=== PATIENT | male | born 1965 | race Caucasian/White ===

== ENCOUNTER 2016-11-14 21:32 | Emergency (ER) | payer OTHER ==
[~2016-11-14] VITALS: Ht 175.3 cm; Wt 102.3 kg
[~2016-11-14 21:32] MED LIST: ACYC400T7 PO; ATOR80TA77 PO; BENZ-12 PO; BENZ142C6 TP; BUPR300T51 PO; CLIN30GE2 TP; CYCL10TA9 PO; HYDR-3740 PO; HYDR25TA4 PO; KETACONAZOLE CREAM TP; KETACONAZOLE SHAMPOO TP; LORA1TAB PO; METO200T32 PO; ONDA8TAB10 PO; ZIT250 PO; [UNRECOGNIZED DRUG - REMARK] PO
[2016-11-14 21:38] VITALS: BP 149/93; PULSE 106; RESP 23; O2SAT 94
--- NOTE | 2016-11-14 21:49 | ED.REPORT ---
HPI-Dyspnea / Wheezing Date of Service Nov 14, 2016 ED Provider: Hamlet Vera MD 51 year old male with HTN presents to the ER accompanied by a female elevator erector helper complaining of shortness of breath. He states that symptoms onset while walking up a hill with approximately 30lbs of groceries in his backpack. Patient denies chest pain, but reports a sensation of chest "tightness". Nursing Notes Stated Complaint: SHORT OF BREATH Chief Complaint: Respiratory Complaints Nursing Notes Reviewed: Yes Allergies: Coded Allergies: No Known Allergies (Unverified , 02/01/15) Scheduled ([Ketaconazole Shampoo]) 1 APPL TP 2X/WK 2% ([Ketaconazole Cream]) 1 APPL TP BID 2% Acyclovir (Zovirax) 400 Mg Tablet 400 MG PO BID Atorvastatin Calcium (Atorvastatin Calcium) 80 Mg Tablet 80 MG PO DAILY Azithromycin (Zithromax) 250 Mg Tablet 250 MG PO DAILY Benzoyl Peroxide (Benzoyl Peroxide) 142 Gm Cleanser 142 GM TP DAILY Bupropion ER (Wellbutrin XL) 300 Mg Tab.er.24h 300 MG PO DAILY Clindamycin Phosphate (Clindamycin Phosphate Gel) 30 Gm Gel..gram. 1 APPLIC TP BID 1% Hydrochlorothiazide (Hydrochlorothiazide) 25 Mg Tablet 25 MG PO DAILY Metoprolol Succinate ER (Metoprolol Succinate ER) 200 Mg Tab.er.24h 200 MG PO DAILY Prednisone (PredniSONE) 20 Mg Tablet 20 MG PO TID Scheduled PRN ([Benedryl Allergy]) 25-50 MG PO Q4-6H PRN PRN PRN Benzonatate (Tessalon Perle) 100 Mg Capsule 200 MG PO TID PRN PRN For Cough Cyclobenzaprine (Cyclobenzaprine) 10 Mg Tablet 10 MG PO TID PRN PRN For Spasm Hydrocodone-Acetaminophen 10-325 mg (Hydrocodone-Acetaminophen 10-325 mg) 1 Tab Tablet 1 TAB PO Q4-6H PRN PRN For Pain Lorazepam (Lorazepam) 1 Mg Tablet 1 MG PO BID PRN PRN For Anxiety Ondansetron ODT (Ondansetron ODT) 8 Mg Tab.rapdis 8 MG PO Q4H PRN PRN For Nausea General Time Seen by MD: 21:47 Chief Complaint Shortness of breath Hx Obtained From: Patient Arrived By: Walk-in Onset Occurred: Just prior to arrival Symptom Duration: Since onset Pertinent Negative: Pt denies other symptoms Exacerbated by: Deep breath Pertinent Negative: Relieved by nothing Past Medical History Past Medical History Hypertension Hyperlipidemia slight chronic back pain History of bursitis of the right hip Anxiety Bipolar history depression Past Surgical History Reports: Back/neck surgery Smoking History Former Smoker Social History Drug Use: THC Other Social History: Good social support, Lives with children, Local resident Ambulatory Status Independent Review of Systems Constitutional: Denies: Chills, Fever Respiratory: Reports: Shortness of breath, Denies: Non-productive cough Cardiovascular: Denies: Chest pain Musculoskeletal: Denies: Back pain, Extremity pain, Neck pain Complete sys rev & neg: except as marked. GI: Denies: Abdominal pain, Diarrhea, Nausea, Vomiting Physical Exam Initial Vital Signs Vital Signs (First) Date Time Temp Pulse Resp B/P Pulse Ox O2 Delivery O2 Flow Rate FiO2 11/14/16 21:38 36.2 106 23 149/93 94 Room Air 11/14/16 22:16 3 Initial VS: Reviewed, Vital signs abnormal Head / Eyes: Atraumatic, Normocephalic ENT: Mucous membranes moist, Conjunctiva normal, No scleral icterus Abdomen / GI: Soft, Non-tender, No guarding, No rebound, No distention Extremities: Vascular intact, Neuro intact, No swelling, No tenderness Skin: Warm, Dry, No cyanosis Neurologic: Alert, Oriented, Nonfocal General/Constitutional: Awake, Alert, Well developed, Well nourished Neck: Atraumatic, Supple, No meningismus, Full range of motion, No swelling, Non-tender, No masses Respiratory / Chest: No rales, No rhonchi Wheezing / Retractions: Positive: Accessory muscle use mod, Wheezing expiratory , Wheezing moderate Tachypneic Cardiovascular: Heart rate NL, Regular rhythm, Heart sounds NL, Peripheral circulation NL Interpretation & Diagnostics Lab Results Interpretation Result Diagram: 11/14/16220311/14/16 220 Test 11/14/16 22:04 White Blood Count 10.9th/mm3 (3.8-10.1) Red Blood Count 5.39mil/mm3 (4.40-5.80) Hemoglobin 15.6g/dL (13.8-17.2) Hematocrit 45.7% (41.0-50.0) Mean Corpuscular Volume 84.8fL (81-100) Mean Corpuscular Hemoglobin 28.9pg (27.0-35.0) Mean Corpuscular Hemoglobin Concent 34.1% (32.0-37.0) Red Cell Distribution Width 13.2% (12.3-15.4) Platelet Count 244bil/L (150-400) Neutrophils (%) (Auto) 51.7% (40-74) Lymphocytes (%) (Auto) 33.7% (14-46) Monocytes (%) (Auto) 9.0% (4-12) Eosinophils (%) (Auto) 4.8% (0-5) Basophils (%) (Auto) 0.5% (0-3) D-Dimer < 0.5mg/L (<0.50) Sodium Level 138mEq/L (134-144) Potassium Level 3.5mEq/L (3.5-5.2) Chloride Level 95mEq/L (97-108) Carbon Dioxide Level 30mmol/L (18-29) Blood Urea Nitrogen 13mg/dL (6-24) Creatinine 0.98mg/dL (0.76-1.27) Estimat Glomerular Filtration Rate 85mL/min (>59) Glucose Level 106mg/dL (60-99) Calcium Level 9.3mg/dL (8.5-10.1) Magnesium Level 2.1mg/dL (1.6-2.6) Total Bilirubin 0.5mg/dL (0.0-1.2) Aspartate Amino Transf (AST/SGOT) 25U/L (0-50) Alanine Aminotransferase (ALT/SGPT) 38U/L (0-44) Alkaline Phosphatase 97U/L (25-150) Troponin T 0.010ug/L (0.0-0.011) Total Protein 7.3g/dL (6.4-8.4) Albumin 4.5g/dL (3.4-5.0) Hold Lala Top Tube Received (Received) Lab values outside NL range: no clinical significance. ECG Interpretation ECG Interpretation: Sinus tachycardia, rate 101 Time: 21:52 Interpreted by: ED physician X-Ray Chest Interpretation Chest Xray Interpretation: Normal View: AP & lat Interpretation / Wet Read by: Wet read ED physician Re-Eval/Medical Decision Med Decision/Clinical Course 51-year-old male with a mild viral upper respiratory infection presents with shortness of breath on several occasions with activity. He does not have a history of asthma and does not normally use an inhaler. He had tight wheezing in all lung villagomez which responded well to nebulizer treatment. He was given a albuterol inhaler with a spacer and instructions on its use. Penicillin 20 mg by mouth now and then 3 times a day for 5 days, #15 dispensed. Source of Hx: Old records Re-Evaluation/Progress : Time of Eval: 23:11 Patient Status: Condition improved, Moderate relief Re-Evaluation/Progress Note: Discussed lab and radiology results and plan to discharge. Patient is amenable to the plan. Return precautions given. Verbal discharge instructions given. All other questions addressed. Counseled Regarding: Diagnosis, Lab results, Need for follow-up, When/why to return to ED Discharge & Departure Impression: Primary Impression: Reactive airway disease Asthma severity: mild intermittent Asthma complication type: with acute exacerbation Qualified Code: J45.21 - Mild intermittent asthma with (acute) exacerbation Disposition: Home Discharge Condition All VS Reviewed: Yes Condition: Stable Patient Instructions: Reactive Airways Disease (ED) Additional Instructions: You have a mild viral bronchitis which is triggered bronchospasm of the airways. We call this reactive airways disease. This is similar to asthma but it is part-time temporary. Albuterol metered-dose inhaler 2 puffs every 4-6 hours as needed. Prednisone 20 mg by mouth 3 times a day for 5 days, #15 prescription written. Follow-up with your regular doctor if her symptoms persist. Referrals: Gina Chavez MD (PCP) Scribe Attestation Portions of this note were transcribed by Zen Macedo. I, Dr. Vera, personally performed the history, physical exam and medical decision-making; I reviewed and confirmed the accuracy of the information in the transcribed note. Signed by: Romaine Ornelas. 11/14/2016, 23:13 copies to: Gina Chavez MD, Howard L MD Nov 14, 2016 21:48 ZEN MACEDO Nov 14, 2016 21:57 Freddie Dillon Nov 14, 2016 23:45
[2016-11-14] MEDS ORDERED: Albuterol 2.5 mg/3 mL Inhalation Solution NEB ONE (22:00)
[2016-11-14] MEDS ORDERED: Albuterol-Ipratropium 3 mL Inhalation Solution NEB ONE (22:00)
[2016-11-14 22:16] VITALS: PULSE 97; RESP 24; O2SAT 95
[2016-11-14 22:16] LABS: BASOPHILS % (AUTO) 0.5 % (0-3); EOSINOPHILS % (AUTO) 4.8 % (0-5); Mean Corpuscular Hemoglobin 28.9 pg (27.0-35.0); Mean Corpuscular Volume 84.8 fL (81-100); NEUTROPHILS % (AUTO) 51.7 % (40-74); Platelet Count 244 bil/L (150-400)
[2016-11-14 22:33] LABS: TROPONIN T 0.01 ug/L (0.0-0.011)
[2016-11-14 22:45] LABS: Magnesium 2.1 mg/dL (1.6-2.6)
[2016-11-14] MEDS ORDERED: predniSONE 20 mg Tablet PO ONE (23:15)
[2016-11-14] MEDS ORDERED: PRE20 PO (23:21)
[2016-11-14] MEDS: _Albuterol-HFA 60 Puff Inhaler INHALATION PRN (23:49)
[2016-11-15 00:03] VITALS: BP 146/96; PULSE 102; RESP 24; O2SAT 95
--- NOTE | 2016-11-15 09:25 | DRSVH ---
PROCEDURE: X-RAY CHEST, TWO VIEWS ([id number]) INDICATIONS: short of breath TECHNIQUE: 2 views of the chest were acquired. COMPARISON: [facility], [place], XR CHEST 1VW (PORTABLE), 10/05/2016, 15:48. FINDINGS: Surgical changes and devices: None. Lungs and pleura: No pleural effusions or pneumothorax. Lungs are clear. Mediastinum: Mediastinal contours are normal. Heart size is normal. Bones and chest wall: No suspicious bony abnormalities. Soft tissues appear unremarkable. IMPRESSION: Normal. Source of shortness of breath is not seen. Dictated by: Melvin Cruz M.D. on 11/15/2016 at 9:23 Approved by: Melvin Cruz M.D. on 11/15/2016 at 9:23
== END 2016-11-15 00:07 | disposition home or self-care (01) ==
LOC: SED 21:32
DX: J45.21 Mild intermittent asthma with (acute) exacerbation (principal); I10 Essential (primary) hypertension; E78.5 Hyperlipidemia, unspecified; Z87.891 Personal history of nicotine dependence
CPT/HCPCS: 36415; 71020; 80053; 83735; 84484; 85025; 85379; 93005; 94640; 94664; 99285; J7613; J7620